=== PATIENT | male | born 1965 | race Caucasian/White ===

== ENCOUNTER 2017-07-16 10:02 | Day surgery (SDC) | payer BC ==
[~2017-07-16] VITALS: Ht 182.9 cm; Wt 153.3 kg
[2017-07-16] MEDS ORDERED: PRAVACHOL 20MG20 MG PO (10:20)
[2017-07-16] MEDS ORDERED: PRINIVIL20 MG PO (10:21)
[2017-07-16] MEDS ORDERED: CELEXA 20MG20 MG/TAB PO (10:21)
[2017-07-16 10:23] VITALS: BP 136/88; PULSE 63; TEMP 98.1
[2017-07-16 12:15] VITALS: BP 105/77; PULSE 64; TEMP 98.4
[2017-07-16 12:30] VITALS: BP 115/76; PULSE 64
[2017-07-16 12:45] VITALS: BP 115/72; PULSE 58
[2017-07-16 13:05] VITALS: BP 110/74; PULSE 66
== END 2017-07-16 13:08 | disposition home or self-care (01) ==
LOC: SDCO 10:02
DX: Z12.11 Encounter for screening for malignant neoplasm of colon (principal); K57.30 Diverticulosis of large intestine without perforation or abscess without bleeding; I10 Essential (primary) hypertension; E78.00 Pure hypercholesterolemia, unspecified
CPT/HCPCS: J2250; J3010; J7030